=== PATIENT | male | born 1980 | race Asian ===

== ENCOUNTER → 2016-05-28 | Day surgery (SDC) | payer OTHER ==
[~2016-05-28] MED LIST: GAS-X ULTRA ST180 MG PO; MINOCYCLINE HC100 M1 PO; MOTRIN400 M1 PO; OMEPRAZOLE20 M1 PO; VITAMIN B-121000 MCG PO; ZITHROMAX1 G/PKT PO
--- NOTE | ~2016-05-28 | OR ---
Unit #: [id number] #: [id number] Patient: ALICIA STRATTON [id number] [address] [place], [place] [address] [id number] MR#: [id number] NAME: ALICIA STRATTON ROOM: Date of Procedure: 05/28/2016 Admission Date: 05/28/2016 Surgeon: Serafin Streeter M.D. : 1980 Attending Physician: Serafin Streeter M.D. Referring Physician: Serafin Streeter M.D. Primary Care Physician: Primary Care Physician No OPERATIVE REPORT PROCEDURE PERFORMED Bronchoscopy. INDICATIONS FOR PROCEDURE Right middle lobe, atypical pneumonia. PREOPERATIVE DIAGNOSES Right middle lobe, atypical pneumonia. INTRAOPERATIVE FINDINGS No endobronchial lesions. POSTOPERATIVE DIAGNOSES Right middle lobe, atypical pneumonia, some concern for tuberculosis. DESCRIPTION OF PROCEDURE Mr. Stratton was brought to endoscopy and given sedation via MAC. The patient was oxygenated with nasal cannula. Scope was placed orally through a bite block. Vocal cords within normal limits. Trachea was within normal limits. The main tiara was sharp. Left upper lobe including the lingula and left lower lobe within normal limits with a little bit of mucus plugging and he did have some areas of melanosis. On the right side, right upper lobe, right middle lobe, and right lower lobe were all essentially normal, although there was an area in the right lower lobe of some heaped up mucosa that otherwise looks okay. The mucosa really does not look neoplastic in any way, shape, or form. I did not do a biopsy on this. Because of the appearance of the CAT scan, although washing was done throughout, main emphasis was right middle lobe, and both medial and lateral right lower lobe were brushed. This was followed by a BAL right middle lobe, 30 mL x4 with a good return. No complications were noted from this procedure. The patient tolerated procedure well. Specimens will be sent for the usual cultures and the slides from the brushing will be sent for AFB and the brush itself will also be sent for AFB. Dictated by... Renée Baca/jacquie Unit #: [id number] #: [id number] Patient: ALICIA STRATTON TD: 05/29/2016 02:41 JOB #: [id number] OPERATIVE REPORT X Serafin Streeter MD PROCEDURE OPERATIVE NOTE
[2016-05-28 14:07] LABS: BF TOTAL NUCLEATED CELL COUNT 229 CMM (0-100); BODY FLUID APPEARANCE BLOODY; BODY FLUID RBC <10000 CMM; BODY FLUID SOURCE BRONCHIAL LAVAGE
== END | disposition home or self-care (01) ==
LOC: COPS 09:26
PROVIDERS: Internal Medicine Pulmonary Disease
DX: J18.9 Pneumonia, unspecified organism (principal)
CPT/HCPCS: 87070; 87102; 87116; 87205; 87206; 88104; 88108; 88305; 88312; 89051; J0171; J2250

== ENCOUNTER 2016-10-23 13:44 | Emergency (ER) | payer OTHER ==
[~2016-10-23] VITALS: Ht 172.7 cm; Wt 68.0 kg
--- NOTE | ~2016-10-23 | CR58 ---
[facility] A Service of [facility] RADIOLOGY TEXT RESULTS PATIENT: ALICIA STRATTON LOCATION: [facility] : 84 UNIT #: [id number] AGE: [address]: Yuliana Garcia APRN SEX: M ORDER DR: [id number] [id number] [facility]. [place], [place] [address] [id number] MR#: [id number] Acc #: [id number] NAME: ALICIA STRATTON : 1980 SEX: M STUDY DATE/TIME: 10/23/2016 16:40 UNIT: [facility] ROOM: STUDY DESCRIPTION: CR Cervical Spine 2 or 3 Views Attending Physician: Yuliana Garcia A.P.R.N. Ordering Physician: Matt Hart M.D. Primary Care Physician: Carol Torres M.D. MEDICAL IMAGING REPORT This report is preliminary unless electronic signature is present EXAM Cervical series 10/23/2016. INDICATIONS 36-year-old male with right-sided neck pain that started today. TECHNIQUE 3 views of the cervical spine. COMPARISON No comparisons. FINDINGS Dens and lateral masses are intact. Cervicothoracic junction intact. Generalized cervical straightening. Soft tissues unremarkable. No acute fracture or malalignment. There is mild facet arthropathy in the hil-uw-qnlwe cervical levels. IMPRESSION 1. No acute fracture or malalignment. 2. Nonspecific cervical straightening. Dictated by... Jamey Carolina M.D. THIS IS AN ELECTRONICALLY VERIFIED REPORT Jamey Carolina M.D. at 10/24/2016 2:23 PM JLY/gz TD: 10/24/2016 11:14 JOB #: [id number] MEDICAL IMAGING REPORT [facility] A Service [facility] RADIOLOGY TEXT RESULTS PATIENT: ALICIA STRATTON LOCATION: [facility] : 84 UNIT #: [id number] AGE: [address]: Yuliana Garcia APRN SEX: M ORDER DR: Page 1 of 1 COPY
== END 2016-10-23 17:50 | disposition home or self-care (01) ==
LOC: CFTX 13:44 → CED 13:44 → CFTX 16:28
DX: M43.6 Torticollis (principal); K21.9 Gastro-esophageal reflux disease without esophagitis
CPT/HCPCS: 72040; 96372; 99283; J1885